=== PATIENT | female | born 1945 | race Caucasian/White ===

== ENCOUNTER 2019-10-12 22:59 | Emergency (ER) | payer MEDICARE, BC ==
[2019-10-12] MEDS ORDERED: Sodium Chloride 0.9% 10 ML Syringe FLUSH PRN (23:18)
[2019-10-12] MEDS ORDERED: Diltiazem 25 MG/5 ML SDV IVPUSH ONE (23:18)
--- NOTE | 2019-10-12 23:21 | EDM.PDOC ---
ED HPI GENERAL MEDICAL PROBLEM - General Chief Complaint: Cardiovascular Problem Stated Complaint: FAST HEART RATE Time Seen by Provider: 10/12/19 23:18 Source of Information: Reports: Patient, RN Notes Reviewed History Limitations: Reports: No Limitations - History of Present Illness INITIAL COMMENTS - FREE TEXT/NARRATIVE: 74-year-old female presents emergency department today with complaint of palpitations. She has a known history of atrial fibrillation proximate 6 months ago had her first event of atrial fibrillation she states she was evaluated by her account support associate work-up was negative she has not had any further events has been on atenolol since. Today she feeling normal no troubles last meal was about 3:00 in the afternoon did have ice cream cone at 830 this evening and then while sitting on the couch suddenly felt palpitations some shortness of breath no nausea vomiting no diaphoresis - Related Data Allergies Allergy/AdvReac Type Severity Reaction Status Date / Time diatrizoate sodium Allergy Shortness Verified 10/12/19 23:26 [From Hypaque] of Breath Sulfa (Sulfonamide Allergy Redness Verified 10/12/19 23:26 Antibiotics) Home Meds: Home Meds Albuterol Sulfate [Albuterol Sulfate Hfa] 1 puff IN ASDIRECTED 10/12/19 [History ] Aspirin [Halfprin] 81 mg PO DAILY 10/12/19 [History] Umeclidinium [place] [Incruse Ellipta*] 1 puff IN ASDIRECTED 10/12/19 [History] atenoloL [Atenolol] 25 mg PO DAILY 10/12/19 [History] tiZANidine [Zanaflex] 2 mg PO ASDIRECTED 10/12/19 [History] Past Medical History Cardiovascular History: Reports: Afib Social & Family History - Tobacco Use Smoking Status *Q: Never Smoker ED ROS GENERAL - Review of Systems Review Of Systems: See Below Constitutional: Reports: No Symptoms HEENT: Reports: No Symptoms Respiratory: Reports: Shortness of Breath Cardiovascular: Reports: Dyspnea on Exertion, Palpitations. Denies: Chest Pain GI/Abdominal: Reports: No Symptoms ED EXAM, GENERAL - Physical Exam Exam: See Below Exam Limited By: No Limitations General Appearance: Alert, Mild Distress Respiratory/Chest: No Respiratory Distress, Lungs Clear, Normal Breath Sounds, No Accessory Muscle Use, Chest Non-Tender Cardiovascular: No Murmur, Tachycardia, Irregularly Irregular GI/Abdominal: Soft, Non-Tender Extremities: No Pedal Edema ED CARDIOLOGY PROCEDURES - Cardioversion Time of Cardioversion: 01:21 Indication: Atrial Fibrillation with RVR Patient Counseled: Yes Informed Consent Obtained: Yes Preparation: IV Access, Airway Management Equipment, Supplemental Oxygen, Monitor, Reversal Agents Available, Other (Anesthesia in the room) Pre-Procedure Sedation: Propofol Cardioversion Energy: 200J Sync Successful: Yes Number of Attempts: 1 Patient Condition Post Cardioversion: Improved Post Cardioversion EKG Reviewed: Yes Course - Vital Signs Last Recorded V/S: Last Vital Signs Temp 97.1 F 10/12/19 23:23 Pulse 63 10/13/19 01:44 Resp 14 10/12/19 23:23 BP 174/86 H 10/13/19 01:44 Pulse Ox 98 10/12/19 23:23 - Orders/Labs/Meds Orders: Active Orders 24 hr Category Date Time Status Cardiac Monitoring [RC] .As Directed Care 10/12/19 23:18 Active EKG Documentation Completion [RC] ASDIRECTED Care 10/12/19 23:19 Active EKG Documentation Completion [RC] ASDIRECTED Care 10/13/19 01:21 Active Peripheral IV Care [RC] . DIRECTED Care 10/12/19 23:19 Active Chest 1V Frontal [CR] Stat Exams 10/12/19 23:19 Taken Diltiazem [Cardizem] 100 mg Med 10/12/19 23:30 Active Sodium Chloride 0.9% [Normal Saline] 100 ml IV TITRATE Sodium Chloride 0.9% [Saline Flush] Med 10/12/19 23:18 Active 10 ml FLUSH ASDIRECTED PRN ED Antiarrhythmia Med Reflex [OM.PC] Stat Oth 10/12/19 23:19 Ordered Peripheral IV Insertion Adult [OM.PC] Stat Oth 10/12/19 23:18 Ordered Saline Lock Insert [OM.PC] Stat Oth 10/12/19 23:18 Ordered EKG 12 Lead [EK] Stat Ther 10/12/19 23:19 Ordered EKG 12 Lead [EK] Stat Ther 10/13/19 01:20 Ordered Medication Orders Diltiazem HCl 100 mg/ Sodium (Chloride) 100 mls @ 5 mls/hr IV TITRATE [facility]; Protocol Last Admin: 10/12/19 23:40 Dose: 5 mg/hr, 5 mls/hr Sodium Chloride (Saline Flush) 10 ml FLUSH ASDIRECTED PRN PRN Reason: Keep Vein Open Last Admin: 10/13/19 00:10 Dose: 10 ml Labs: Laboratory Tests 10/12/19 10/12/19 Range/Units 23:20 23:20 WBC 9.4 (4.5-11.0) K/uL RBC 4.63 (3.30-5.50) M/uL Hgb 13.4 (12.0-15.0) g/dL Hct 42.4 (36.0-48.0) % MCV 92 (80-98) fL MCH 29 (27-31) pg MCHC 32 (32-36) % Plt Count 304 (150-400) K/uL Neut % (Auto) 60 (36-66) % Lymph % (Auto) 28 (24-44) % Love % (Auto) 9 H (2-6) % Eos % (Auto) 2 (2-4) % Baso % (Auto) 1 (0-1) % Sodium 143 (140-148) mmol/L Potassium 3.7 (3.6-5.2) mmol/L Chloride 107 (100-108) mmol/L Carbon Dioxide 24 (21-32) mmol/L Anion Gap 12.1 (5.0-14.0) mmol/L BUN 23 H (7-18) mg/dL Creatinine 1.3 H (0.6-1.0) mg/dL Est Cr Clr Drug Dosing 37.48 mL/min Estimated GFR (MDRD) 40 L (>60) Glucose 149 H (74-106) mg/dL Calcium 8.7 (8.5-10.1) mg/dL Total Bilirubin 0.4 (0.2-1.0) mg/dL AST 16 (15-37) U/L ALT 23 (12-78) U/L Alkaline Phosphatase 99 (46-116) U/L Troponin I < 0.017 (0.000-0.056) ng/mL Total Protein 7.1 (6.4-8.2) g/dL Albumin 3.5 (3.4-5.0) g/dL Globulin 3.6 H (2.3-3.5) g/dL Albumin/Globulin Ratio 1.0 L (1.2-2.2) Meds: Medications Generic Name Dose Route Start Last Admin Trade Name Freq PRN Reason Stop Dose Admin Diltiazem HCl 100 mg/ Sodium 100 mls @ 5 mls/hr 10/12/19 23:30 10/12/19 23:40 Chloride IV 5 mg/hr TITRATE YVETTE 5 mls/hr Administration Protocol 5 MG/HR Sodium Chloride 10 ml 10/12/19 23:18 10/13/19 00:10 Saline Flush FLUSH 10 ml ASDIRECTED PRN Administration Keep Vein Open Discontinued Medications Generic Name Dose Route Start Last Admin Trade Name Freq PRN Reason Stop Dose Admin Diltiazem HCl 25 mg 10/12/19 23:18 10/12/19 23:25 Diltiazem IVPUSH 10/12/19 23:19 25 mg ONETIME ONE Administration Propofol Confirm 10/13/19 01:44 Diprivan 20 Ml Administered 10/13/19 01:45 Dose 200 mg .ROUTE .STK-MED ONE Departure - Departure Time of Disposition: 01:49 Disposition: Home, Self-Care 01 Condition: Fair Clinical Impression: Atrial fibrillation with RVR, Encounter for cardioversion procedure Instructions: Atrial Fibrillation Referrals: PCP,None [Primary Care Provider] - Forms: ED Department Discharge Additional Instructions: Recommend increasing your atenolol from 25 mg once a day to 50 mg once a day please follow-up with your account support associate upon return home also discuss thinning your blood as your risk has increased call return to the emergency department worsening of symptoms Critical Care Note - Critical Care Note Total Time (mins): 15 Sepsis Event Note - Focused Exam Vital Signs: Vital Signs Temp Pulse Resp BP Pulse Ox 10/13/19 01:44 63 174/86 H 10/13/19 00:51 96 189/89 H 10/13/19 00:11 80 141/80 H 10/12/19 23:41 94 159/74 H 10/12/19 23:29 120 H 149/73 H 10/12/19 23:23 97.1 F 132 H 14 198/98 H 98 Date Exam was Performed: 10/13/19 Time Exam was Performed: 01:48 - My Orders Last 24 Hours: My Active Orders 10/12/19 23:18 Cardiac Monitoring [RC] .As Directed Sodium Chloride 0.9% [Saline Flush] 10 ml FLUSH ASDIRECTED PRN Peripheral IV Insertion Adult [OM.PC] Stat Saline Lock Insert [OM.PC] Stat 10/12/19 23:19 EKG Documentation Completion [RC] ASDIRECTED Peripheral IV Care [RC] . DIRECTED Chest 1V Frontal [CR] Stat ED Antiarrhythmia Med Reflex [OM.PC] Stat EKG 12 Lead [EK] Stat 10/12/19 23:30 Diltiazem [Cardizem] 100 mg Sodium Chloride 0.9% [Normal Saline] 100 ml IV TITRATE 10/13/19 01:20 EKG 12 Lead [EK] Stat 10/13/19 01:21 EKG Documentation Completion [RC] ASDIRECTED - Assessment/Plan Last 24 Hours: My Active Orders 10/12/19 23:18 Cardiac Monitoring [RC] .As Directed Sodium Chloride 0.9% [Saline Flush] 10 ml FLUSH ASDIRECTED PRN Peripheral IV Insertion Adult [OM.PC] Stat Saline Lock Insert [OM.PC] Stat 10/12/19 23:19 EKG Documentation Completion [RC] ASDIRECTED Peripheral IV Care [RC] . DIRECTED Chest 1V Frontal [CR] Stat ED Antiarrhythmia Med Reflex [OM.PC] Stat EKG 12 Lead [EK] Stat 10/12/19 23:30 Diltiazem [Cardizem] 100 mg Sodium Chloride 0.9% [Normal Saline] 100 ml IV TITRATE 10/13/19 01:20 EKG 12 Lead [EK] Stat 10/13/19 01:21 EKG Documentation Completion [RC] ASDIRECTED Plan: Assessment Acuity = acute Site and laterality = atrial fibrillation with RVR status post electrocardioversion to sinus rhythm Etiology = unknown Manifestations = palpitations now resolved Location of injury = Home Lab values = CBC, creatinine elevated 1.3 consistent chronic renal failure stage G3 B, troponin, chest x-ray all unremarkable initial EKG demonstrates a rate of about 160 atrial fibrillation post EKG demonstrates sinus rhythm [address] elevation or depression Plan I did review anticoagulation with her she is a chads vas score of 3 puts her at moderate risk she would like to review the anticoagulation with her account support associate upon return home, will increase her atenolol from 25 mg to 50 mg once a day This note was dictated using [employer] voice recognition software please call with any questions on syntax or grammar.
[2019-10-12] MEDS ORDERED: Diltiazem 100 MG in Sodium Chloride 0.9% 100 ML IV SCH (23:30)
[2019-10-13] MEDS ORDERED: Propofol 200 MG/20 ML SDV ONE (01:44)
--- NOTE | 2019-10-13 09:03 | CR ---
CHEST: Portable 10/12/2019 at 11:42 PM CLINICAL HISTORY:Chest pain COMPARISON:None FINDINGS: The heart size, pulmonary vascularity and hilar structures are normal. No infiltrate effusion or pneumothorax is seen. There is minimal apical thickening. There are atherosclerotic changes in the aorta. IMPRESSION: No acute cardiopulmonary process.
== END 2019-10-13 02:10 | disposition home or self-care (01) ==
LOC: JP.ED 22:59
DX: I48.91 Unspecified atrial fibrillation (principal); Z88.8 Allergy status to other drugs, medicaments and biological substances; Z88.2 Allergy status to sulfonamides; Z79.82 Long term (current) use of aspirin; Z79.899 Other long term (current) drug therapy
CPT/HCPCS: 36415; 71045; 80053; 84484; 85025; 92960; 93005; 96365; 96366; 96376; 99285; J2704; J3490; J7050; 93010

== ENCOUNTER 2019-10-15 17:16 | Emergency (ER) | payer MEDICARE, BC ==
[2019-10-15] MEDS ORDERED: Diphtheria/Tetanus Toxoids,Adult (Td) 0.5 ML SDV IM ONE (18:08)
--- NOTE | 2019-10-15 18:09 | EDM.PDOC ---
ED HPI GENERAL MEDICAL PROBLEM - General Chief Complaint: Laceration Stated Complaint: R THUMB CUT Time Seen by Provider: 10/15/19 18:00 Source of Information: Reports: Patient History Limitations: Reports: No Limitations - History of Present Illness INITIAL COMMENTS - FREE TEXT/NARRATIVE: lacerated thumb while peeling a potato today. Last tetanus in 2011. Onset: Today Duration: Minutes: Location: Reports: Upper Extremity, Right - Related Data Allergies Allergy/AdvReac Type Severity Reaction Status Date / Time diatrizoate sodium Allergy Shortness Verified 10/15/19 17:35 [From Hypaque] of Breath Sulfa (Sulfonamide Allergy Redness Verified 10/15/19 17:35 Antibiotics) Home Meds: Home Meds Albuterol Sulfate [Albuterol Sulfate Hfa] 1 puff IN ASDIRECTED 10/12/19 [History ] Aspirin [Halfprin] 81 mg PO DAILY 10/12/19 [History] Umeclidinium [place] [Incruse Ellipta*] 1 puff IN ASDIRECTED 10/12/19 [History] atenoloL [Atenolol] 50 mg PO DAILY 10/12/19 [History] tiZANidine [Zanaflex] 2 mg PO ASDIRECTED 10/12/19 [History] Levothyroxine 1 tab PO DAILY 10/15/19 [History] Past Medical History HEENT History: Reports: Impaired Vision Other HEENT History: swallowing issues Cardiovascular History: Reports: Afib Respiratory History: Reports: SOB EKG MONITOR TECH History: Reports: Musculoskeletal History: Reports: Arthritis, Back Pain, Chronic Endocrine/Metabolic History: Reports: Hypothyroidism Oncologic (Cancer) History: Reports: Basal Cell Carcinoma - Infectious Disease History Infectious Disease History: Reports: Chicken Pox, Measles, Mumps - Past Surgical History Other HEENT Surgeries/Procedures: thyroidectomy Female Surgical History: Reports: Hysterectomy Endocrine Surgical History: Reports: Thyroidectomy Musculoskeletal Surgical History: Reports: Knee Replacement Social & Family History - Tobacco Use Smoking Status *Q: Never Smoker - Caffeine Use Caffeine Use: Reports: Soda ED ROS GENERAL - Review of Systems Review Of Systems: See Below Cardiovascular: Reports: No Symptoms Skin: Reports: Other (lacerated right thumb) Neurological: Denies: Numbness ED EXAM, SKIN/RASH Exam: See Below Exam Limited By: No Limitations General Appearance: Alert, WD/WN, No Apparent Distress Skin: Other (2 cm curvilinear laceration distal right thumb) ED SKIN PROCEDURES - Laceration/Wound Repair Right Upper Dorsal Digit - 1st (Thumb) Appearance: Subcutaneous Anesthetic Type: Local Local Anesthesia - Lidocaine (Xylocaine): 1% Plain Local Anesthetic Volume: 2cc Closed with: Sutures Lac/Wound length In cm: 2 Suture Size: 4-0 # of Sutures: 3 Suture Type: Nylon, Interrupted Course - Vital Signs Text/Narrative:: The wound is clean and superfical. It was repaired with sutures. Tetanus given. Dressing applied. Last Recorded V/S: Last Vital Signs Temp 36.4 C 10/15/19 17:41 Pulse 66 10/15/19 17:41 Resp 16 10/15/19 17:41 BP 165/60 H 10/15/19 17:41 Pulse Ox 99 10/15/19 17:41 Departure - Departure Time of Disposition: 18:20 Disposition: DC/Tfer to Medicaid Nur Fac 64 Condition: Good Clinical Impression: Laceration - Discharge Information *PRESCRIPTION DRUG MONITORING PROGRAM REVIEWED*: No *COPY OF PRESCRIPTION DRUG MONITORING REPORT IN PATIENT LEONARD: No Referrals: PCP,None [Primary Care Provider] - Sepsis Event Note - Evaluation Sepsis Screening Result: No Definite Risk - Focused Exam Vital Signs: Vital Signs Temp Pulse Resp BP Pulse Ox 10/15/19 17:41 36.4 C 66 16 165/60 H 99 10/15/19 17:30 36.4 C 66 16 208/127 H 99 Date Exam was Performed: 10/15/19 Time Exam was Performed: 17:47
[2019-10-15] MEDS ORDERED: Diphtheria,Pertussis(Acell),Tetanus Vaccine 0.5 ML SDV IM ONE (18:18)
== END 2019-10-15 18:33 ==
LOC: JP.ED 17:16
DX: S61.011A Laceration without foreign body of right thumb without damage to nail, initial encounter (principal); I48.91 Unspecified atrial fibrillation; E03.9 Hypothyroidism, unspecified; M19.90 Unspecified osteoarthritis, unspecified site; Z88.2 Allergy status to sulfonamides; Z88.8 Allergy status to other drugs, medicaments and biological substances; Z79.82 Long term (current) use of aspirin; Z79.899 Other long term (current) drug therapy; Z23 Encounter for immunization; W26.8XXA Contact with other sharp object(s), not elsewhere classified, initial encounter
CPT/HCPCS: 12001; 90471; 90715; 99282; J2001

== ENCOUNTER 2024-10-02 15:03 | Emergency (ER) | payer MEDICARE, BC ==
[2024-10-02] MEDS: Cyclobenzaprine 10 MG Tab PO ONE (15:46)
[2024-10-02] MEDS: HYDROmorphone 1 MG/ML Syringe IM ONE (16:47)
== END 2024-10-02 18:10 | disposition home or self-care (01) ==
LOC: JP.ED 15:03
DX: S82.001A Unspecified fracture of right patella, initial encounter for closed fracture (principal); E03.9 Hypothyroidism, unspecified; Z90.710 Acquired absence of both cervix and uterus; Z79.899 Other long term (current) drug therapy; Z79.890 Hormone replacement therapy; Z88.2 Allergy status to sulfonamides; Z88.8 Allergy status to other drugs, medicaments and biological substances; W19.XXXA Unspecified fall, initial encounter
CPT/HCPCS: 70450; 72125; 73562; 76377; 96372; 99284; A9270; J1171